=== PATIENT | female | born 1950 ===

== ENCOUNTER 2018-03-15 14:59 | Emergency (ER) | payer MEDICARE, MEDICAID ==
[2018-03-15 15:22] VITALS: PULSE 89; RESP 16; TEMP 97.8; O2SAT 98
[2018-03-15 16:46] VITALS: BP 152/80
--- NOTE | 2018-03-15 16:54 | C.PDOC ---
History Of Present Illness 67 year old female, with PMHx of hypertension and hyperthyroidism, presents to the emergency department complaining of an elevated blood pressure just prior to arrival. The patient states that she started feeling palpitations and checked her blood pressure which was around 170s systolic prompting her to come to ER. She reports she went to her doctor a few days ago where her systolic pressure was read around 160s. Pts HCTZ dose decreased from 25 to 12.5, secondary to hypokalemia. Patient currently feels better. Admits to anxiety. Denies chest pain, SOB, headache, dizziness, fever, or chills. Time Seen by Provider: 03/15/18 15:38 Chief Complaint (Nursing): High Blood Pressure History Per: Patient History/Exam Limitations: no limitations Onset/Duration Of Symptoms: Days Current Symptoms Are (Timing): Still Present Past Medical History Reviewed: Historical Data, Nursing Documentation, Vital Signs Vital Signs: Last Vital Signs Temp 97.8 F 03/15/18 15:14 Pulse 89 03/15/18 15:14 Resp 16 03/15/18 15:14 BP 152/80 H 03/15/18 16:46 Pulse Ox 98 03/15/18 17:39 - Medical History PMH: Anxiety, Asthma, COPD, HTN, Hypercholesterolemia, Hypothyroidism, Osteoporosis, Sleep Apnea Surgical History: Tonsillectomy, (x3) Family History: States: No Known Family Hx - Social History Hx Tobacco Use: No Hx Alcohol Use: Yes Hx Substance Use: No - Immunization History Hx Tetanus Toxoid Vaccination: No Hx Influenza Vaccination: No Hx Pneumococcal Vaccination: No Review Of Systems Except As Marked, All Systems Reviewed And Found Negative. Constitutional: Negative for: Fever, Chills Cardiovascular: Positive for: Palpitations. Negative for: Chest Pain Respiratory: Negative for: Shortness of Breath Gastrointestinal: Negative for: Nausea, Vomiting Neurological: Negative for: Weakness, Numbness Physical Exam - Physical Exam Appears: Non-toxic, No Acute Distress, Other (anxious) Skin: Normal Color, Warm, Dry Head: Atraumatic, Normacephalic Eye(s): bilateral: Normal Inspection, EOMI Nose: Normal Oral Mucosa: Moist Neck: Normal ROM, Supple Chest: Symmetrical, No Tenderness Cardiovascular: Rhythm Regular Respiratory: Normal Breath Sounds, No Accessory Muscle Use, Other (Speaking in full sentences) Extremity: Normal ROM Neurological/Psych: Oriented x3, Normal Speech, Other (No focal deficits) ED Course And Treatment ECG: Interpreted By Me, Viewed By Me ECG Rhythm: Sinus Rhythm Rate From EC O2 Sat by Pulse Oximetry: 98 (RA) Pulse Ox Interpretation: Normal - Radiology CXR: Interpreted by Me, Viewed By Me CXR Interpretation: Yes: No Acute Disease Progress Note: EKG and chest x-ray ordered. On re-evaluation, Patient is resting comfortably, no chest pain or shortness of breath. Patient is being discharged home and is being advised to follow up with physician/clinic in 1-2 days. Case discussed with Dr Acevedo, who agreed upon plan and discharge. Disposition - Disposition Disposition: HOME/ ROUTINE Disposition Time: 16:52 Condition: STABLE Additional Instructions: Follow up with your doctor in 1-2 days. Return to ER if symptoms persist or worsen. Instructions: High Blood Pressure (DC) Forms: Yesmail (Namibian) Print Language: TURKMEN - Clinical Impression Clinical Impression: Anxiety, HTN (hypertension) - PA / RECEIVING INSPECTOR / Resident Statement MD/DO has reviewed & agrees with the documentation as recorded. - Scribe Statement The provider has reviewed the documentation as recorded by the Scribe All medical record entries made by the Scribe were at my direction and personally dictated by me. I have reviewed the chart and agree that the record accurately reflects my personal performance of the history, physical exam, medical decision making, and the department course for this patient. I have also personally directed, reviewed, and agree with the discharge instructions and disposition.
--- NOTE | 2018-03-15 16:55 | RAD ---
Chest x-ray two views History: Screening exam. Comparison: 03/15/2018 Findings: Diffuse increased interstitial lung markings. Few scattered nodular densities in both lung kolb. Bibasilar breast and nipple shadows. Top normal heart size. Calcification in the aorta. Degenerative changes in spine and shoulders. Impression: Diffuse increased interstitial lung markings. Few scattered nodular densities in both lung kolb. Bibasilar breast and nipple shadows. Top normal heart size. Calcification in the aorta.
--- NOTE | 2018-03-16 23:42 | CARD ---
APPROVED REPORT Date of service: 03/15/2018 EKG Measurement Heart [id number] <Conclusion> Normal sinus rhythm Normal ECG
== END 2018-03-15 17:19 | disposition home or self-care (01) ==
LOC: C.ER 14:59
DX: I10 Essential (primary) hypertension (principal); F41.9 Anxiety disorder, unspecified; E78.00 Pure hypercholesterolemia, unspecified; Z87.891 Personal history of nicotine dependence

== ENCOUNTER 2018-04-29 00:58 | Emergency (ER) | payer MEDICAID, MEDICARE ==
[2018-04-29 01:13] VITALS: O2SAT 99
[2018-04-29 01:46] LABS: BASO # 0.1 K/uL (0.0-0.2); BASO % 2.3 % (0.0-2.0); EOS # 0.1 K/uL (0.0-0.7); EOS % 2.5 % (0.0-4.0); HEMOGLOBIN 12.2 g/dL (11.0-16.0); LYMPH # 2.4 K/uL (1.0-4.3); LYMPH % 40.7 % (20.0-40.0); MEAN CELL VOLUME 85.7 fL (81.0-99.0); MEAN CORPUSCULAR HEMOGLOBIN 29.7 pg (27.0-31.0); MEAN CORPUSCULAR HGB CONC 34.6 g/dL (33.0-37.0); MEAN PLATELET VOLUME 7.8 fL (7.2-11.7); MONO # 0.6 K/uL (0.0-0.8); MONO % 9.4 % (0.0-10.0); NEUT # 2.7 K/uL (1.8-7.0); NEUT % 45.1 % (50.0-75.0); RBC 4.11 Mil/uL (3.80-5.20); RED CELL DISTRIBUTION WIDTH 13.4 % (11.5-14.5)
[2018-04-29 01:56] LABS: ALB/GLOB RATIO 1.5 (1.0-2.1); ALBUMIN 4.2 g/dL (3.5-5.0); ALT/SGPT 34 U/L (9-52); AST/SGOT 16 U/L (14-36); BLOOD UREA NITROGEN 12 mg/dL (7-17); GFR NON-AFRICAN AMERICAN > 60
[2018-04-29 02:31] VITALS: BP 128/58; PULSE 60; RESP 16; TEMP 98.7
--- NOTE | 2018-04-29 03:39 | C.PDOC ---
History Of Present Illness 67 year old female presents to the ER with a complaint of palpitations for the past 3 days. Denies chest pain or SOB. Patient states she feels palpitations here in the ER but monitor shows no ectopy. Time Seen by Provider: 04/29/18 01:14 Chief Complaint (Nursing): Palpitations History Per: Patient History/Exam Limitations: no limitations Onset/Duration Of Symptoms: Days Current Symptoms Are (Timing): Still Present Associated Symptoms: denies: Chest Pain, Dyspnea Quality Of Symptoms: Other (Palpitations) Exacerbating Factor(s): Pos: None Recent travel outside of the [place]: No Past Medical History Reviewed: Historical Data, Nursing Documentation, Vital Signs Vital Signs: Last Vital Signs Temp 98.7 F 04/29/18 02:31 Pulse 60 04/29/18 02:31 Resp 16 04/29/18 02:31 BP 128/58 L 04/29/18 02:31 Pulse Ox 99 04/29/18 02:31 - Medical History PMH: Anxiety, Asthma, COPD, HTN, Hypercholesterolemia, Hypothyroidism, Ost eoporosis, Sleep Apnea Surgical History: Tonsillectomy, (x3) Family History: States: Unknown Family Hx - Social History Hx Tobacco Use: No Hx Alcohol Use: No Hx Substance Use: No - Immunization History Hx Tetanus Toxoid Vaccination: No Hx Influenza Vaccination: No Hx Pneumococcal Vaccination: No Review Of Systems Constitutional: Negative for: Fever, Chills Cardiovascular: Positive for: Palpitations. Negative for: Chest Pain Respiratory: Negative for: Cough, Shortness of Breath Gastrointestinal: Negative for: Nausea, Vomiting Neurological: Negative for: Weakness, Numbness Physical Exam - Physical Exam Appears: Non-toxic Skin: Normal Color, Warm, Dry Head: Atraumatic, Normacephalic Eye(s): bilateral: Normal Inspection Oral Mucosa: Moist Neck: Normal, Supple Chest: Symmetrical, No Tenderness Cardiovascular: Rhythm Regular Respiratory: Normal Breath Sounds, No Rales, No Rhonchi, No Wheezing Gastrointestinal/Abdominal: Soft, No Tenderness Back: No CVA Tenderness Neurological/Psych: Oriented x3, Normal Speech ED Course And Treatment - Laboratory Results Result Diagrams: 04/29/18 01:41 04/29/18 01:41 ECG: Interpreted By Me, Viewed By Me ECG Rhythm: Sinus Rhythm ECG Interpretation: Normal Interpretation Of ECG: Normal axis and intervals Rate From EC O2 Sat by Pulse Oximetry: 99 (Room air) Pulse Ox Interpretation: Normal Disposition - Disposition Referrals: [facility] [place], [Non-Staff] - Disposition: HOME/ ROUTINE Disposition Time: 02:10 Condition: GOOD Additional Instructions: VIELKA GUILLEN, thank you for letting us take care of you today. The emergency medical care you received today was directed at your acute symptoms. If you were prescribed any medication, please fill it and take as directed. It may take several days for your symptoms to resolve. Return to the Emergency Department if your symptoms worsen, do not improve, or if you have any other problems. Please contact your doctor or call one of the physicians/clinics you have been referred to that are listed on the Patient Visit Information form that is included in your discharge packet. Bring any paperwork you were given at discharge with you along with any medications you are taking to your follow up visit. Our treatment cannot replace ongoing medical care by a primary care provider outside of the emergency department. Thank you for allowing the [facility] team to be part of your care today. Follow up with your primary care doctor in 2-3 days for re-evaluation and further management. Instructions: Palpitations (DC) Forms: Wish (Micronesian) - Clinical Impression Clinical Impression: Palpitations - Scribe Statement The provider has reviewed the documentation as recorded by the Scribe Matthew Carroll All medical record entries made by the Scribe were at my direction and personally dictated by me. I have reviewed the chart and agree that the record accurately reflects my personal performance of the history, physical exam, medical decision making, and the department course for this patient. I have also personally directed, reviewed, and agree with the discharge instructions and disposition.
--- NOTE | 2018-04-30 23:12 | CARD ---
APPROVED REPORT Date of service: 04/29/2018 EKG Measurement Heart [id number] [place] 150P40 [id number] <Conclusion> Normal sinus rhythm Normal ECG
== END 2018-04-29 02:31 | disposition home or self-care (01) ==
LOC: C.ER 00:58
DX: R00.2 Palpitations (principal)

== ENCOUNTER 2018-11-16 21:17 | Emergency (ER) | payer MEDICARE, MEDICAID | END 2018-11-17 01:06 | disposition home or self-care (01) | LOC: C.ER 11-17 01:06 ==